=== PATIENT | female | born 1985 | race Caucasian/White ===

== ENCOUNTER → 2020-01-15 | Outpatient (CLI) | payer BC ==
--- NOTE | 2020-01-15 10:54 | CARD ---
MR#: [id number] Date of Study: 01/15/2020 Ordering Physician: LANDY SAMAYOA, Referring Physician: LANDY SAMAYOA, Tech: Luci Bergman APPROVED REPORT EXAM: Two-dimensional and M-mode echocardiogram with Doppler and color Doppler. Other Information Quality : FairHR: 78bpm Technically limited study due to body habitus. INDICATION Hypertension/HCVD 2D DIMENSIONS RVDd2.7 (2.9-3.5cm)Left Atrium(2D)3.0 (1.6-4.0cm) IVSd0.9 (0.7-1.1cm)Aortic Root(2D)3.2 (2.0-3.7cm) LVDd5.1 (3.9-5.9cm)LVOT Diameter2.1 (1.8-2.4cm) PWd1.0 (0.7-1.1cm)LVDs3.1 (2.5-4.0cm) FS (%) 39.1 %SV83.9 ml LVEF(%)69.3 (>50%) Aortic Valve AoV Peak Pravin.140.2cm/sAoV VTI27.9cm AO Peak GR.7.9mmHgLVOT Peak Pravin.116.4cm/s LVOT VTI 24.75cmAO Mean GR.4mmHg ELIANA (VMAX)2.19mr5BLM (VTI)3.12cm2 Mitral Valve MV E Hucjwluk141.7cm/sMV DECEL QBCP634yz MV A Vnezuxil96.6cm/sMV E Mean Gr.3mmHg MV WHB85slD/A Ratio1.2 MVA (PHT)3.33cm2 TDI E/Lateral E'12.1E/Medial E'10.8 Pulmonary Valve PV Peak Fuskwevr591.7cm/sPV Peak Grad.4mmHg Tricuspid Valve TR P. Sffwhpia816hu/sRAP [id number] TR Peak Gr.38tsIuWYWJ74gfDc Pulmonary Vein S1 Ibgryyyv87.2cm/sD2 Gcetamcb58.2cm/s PVa edarsgki004ovlh LEFT VENTRICLE The left ventricle is normal size. There is normal left ventricular wall thickness. The left ventricu lar systolic function is normal and the ejection fraction is within normal range. The Ejection Fracti on is 55-60%. There is normal LV segmental wall motion. Transmitral Doppler flow pattern is Grade II- pseudonormal filling dynamics. RIGHT VENTRICLE The right ventricle is normal size. There is normal right ventricular wall thickness. The right ventr icular systolic function is normal. ATRIA The left atrium size is normal. The right atrium size is normal. The interatrial septum is intact wit h no evidence for an atrial septal defect or patent foramen ovale as noted on 2-D or Doppler imaging. AORTIC VALVE The aortic valve is normal in structure and function. Doppler and Color Flow revealed no significant aortic regurgitation. There is no significant aortic valvular stenosis. Calculated aortic valve area is 3.1 cm2 with maximum pressure gradient of 9 mmHg and mean pressure gradient of 5 mmHg. MITRAL VALVE The mitral valve is normal in structure and function. There is no evidence of mitral valve prolapse. There is no mitral valve stenosis. Doppler and Color-flow revealed trace mitral regurgitation. TRICUSPID VALVE The tricuspid valve is not well visualized. Doppler and Color Flow revealed no tricuspid valve regurg itation noted. There is no tricuspid valve stenosis. PULMONIC VALVE The pulmonic valve is not well visualized. Doppler and Color Flow revealed trace pulmonic valvular re gurgitation. There is no pulmonic valvular stenosis. GREAT VESSELS The aortic root is normal in size. The IVC is normal in size and collapses >50% with inspiration. PERICARDIAL EFFUSION There is no evidence of significant pericardial effusion. Critical Notification Critical Value: No <Conclusion> The left ventricular systolic function is normal and the ejection fraction is within normal range. Th e Ejection Fraction is 55-60%. There is normal LV segmental wall motion. Signed by : Ellis Kerr, Electronically Approved : 01/15/2020 10:54:01
== END | disposition home or self-care (01) ==
LOC: ECHO 08:44
PROVIDERS: ATTEND Internal Medicine Cardiovascular Disease
DX: I10 Essential (primary) hypertension (principal)
CPT/HCPCS: 93306

== ENCOUNTER → 2020-09-03 | Outpatient (CLI) | payer BC ==
[~2020-09-03] MED LIST: AMLO2.5T5 PO; HYDR12.58 PO; IOHEXOL 240 MG/ML 50ML VIAL. PO ONE; IOHEXOL 300 MG/ML 100ML VIAL. IV ONE
--- NOTE | 2020-09-03 15:26 | KCIC ---
INDICATION: Reason: Generalized pain, nausea, irregular bowels / Spl. Instructions: 100mL Omni 300 / History: . COMPARISON: None. TECHNIQUE: Axial CT images obtained through the abdomen and pelvis with contrast. One or more of the following individualized dose reduction techniques were utilized for this examinat ion: 1. Automated exposure control; 2. Adjustment of the mA and/or kV according to patient size; 3 . Use of iterative reconstruction technique. FINDINGS: Abdominal aorta is not aneurysmal. Liver is low density which can be seen with fatty infiltration. At least moderate in severity. No peripancreatic fluid collection. Spleen unremarkable. There is some low density seen along the periphery of the left kidney measuring up to approximately 8 mm in thickness this extends for approximately 35 mm craniocaudal. There are so me calcifications in the area. No hydronephrosis. Urinary bladder is largely decompressed. Exophytic calcification off of the uterus could be fibroid or calcification of mesenteric fat. Cystic lesion of the right ovary measuring up to 24 mm. No dilated loops of bowel to suggest obstruction. IMPRESSION: * No evidence of bowel obstruction. * Small cystic lesion of the right ovary. * At the left kidney there is a rim of low density along the lateral aspect with some calcifications within. Nonspecific appearance with one possible cause including a small amount of subcapsular fluid at the region although given the calcifications this may not be acute in nature. Would correlate wit h symptoms and history of trauma to the region given that causes such as a trace amount of subcapsula r blood from remote subcapsular hematoma could have this appearance as well. This does not have the c lassic appearance for a renal mass but follow-up could be obtained in a few months to ensure this is[place] s not increase. Electronically signed by: Farooq Casiano MD (09/03/2020 3:24 PM) [id number]
== END ==
LOC: KCIC CT 13:54
PROVIDERS: ATTEND Internal Medicine Gastroenterology
DX: N83.292 Other ovarian cyst, left side (principal)
CPT/HCPCS: 74177; Q9966; Q9967

== ENCOUNTER → 2021-08-13 | Outpatient (CLI) | payer BC ==
[~2021-08-13] MED LIST changes: -IOHEXOL 240 MG/ML 50ML VIAL. PO ONE; -IOHEXOL 300 MG/ML 100ML VIAL. IV ONE
--- NOTE | 2021-08-13 10:21 | KCIC ---
EXAMINATION: XR CHEST 2V CLINICAL HISTORY: S/P COVID 07/27/21, INCREASING COUGH DAY/NIGHT WORSE LAYING DOWN, SOA. FATIGUE, MIGR AINES, NIGHT SWEATS, PT 5 WEEKS PREG. EXAM DATE/TIME: 08/13/2021 9:54 AM COMPARISON: None FINDINGS: Lines, Tubes, and Devices: None. Cardiomediastinal Silhouette: Heart size at upper limits of normal. Lungs and Pleura: No evidence of focal airspace consolidation or pleural effusion. Pulmonary vasculat ure unremarkable. Bones and Soft Tissues: No acute osseous abnormality. IMPRESSION: No evidence of acute cardiopulmonary abnormality. Electronically signed by: Helder Anand DO (08/13/2021 10:18 AM) [facility]
== END ==
LOC: KCIC 09:49
PROVIDERS: ATTEND Nurse Practitioner Family
DX: R05.9 Cough, unspecified (principal); Z86.16 Personal history of COVID-19
CPT/HCPCS: 71046